=== PATIENT | male | born 1945 | race Caucasian/White ===

== ENCOUNTER → 2016-11-22 | Outpatient (CLI) | payer OTHER, BC ==
[~2016-11-22] MED LIST: ACETAMINOPHEN; ADULT LOW DOSE81 MG PO; ALPRAZOLAM 0.50.5 M1 PO; AMBIEN 10 MG TA10 MG PO; AMLODIPINE BESY10 MG PO; CELLCEPT 250 M250 M1 PO; HYDROCHLOROTHIA25 M2; KEFLEX500 MG PO; LISINOPRIL40 MG PO; METOPROLOL 100100 M1 PO; NORCO 5-325 TA1 EACH PO; POTASSIUM20 PO; PREDNISOLONE 5 M5 M1 PO; PRILOSEC 20 MG20 MG PO; PROGRAF0.5 MG PO; PROTONIX40 M2 PO; ROSADAN45 G1; SIMVASTATIN40 MG PO; THERAPEUTIC-M1 EAC1 PO
--- NOTE | ~2016-11-22 | PFR/MVV ---
[facility] [place] [address] PULMONARY FUNCTION MVV/REPORT Name: FAIZA GODWIN Room #: KIM Estrada#: [id number] Admission: 11/22/16 Attend Phys: Jose Whyte DO Discharge: Date of : 49 Report #: [id number] THIS REPORT FOR: //name// COPIES FOR: AGE: 71 SEX/RACE: M/C >> SPIROMETRY: (BTPS) Height: 66.0 in cm Weight: 205 lbs kg Exam Date: 11/22/16 PRE-RX POST-RX PRED BEST %PRED BEST %PRED %CHG FVC LITERS . 3.34 . 3.28 . 98 . 3.05 . 91 . -7 FEV1 LITERS . 2.64 . 2.42 . 92 . 2.42 . 92 . 0 FEV1/FVC % . 79 . 74 . 93 . 79 . 100 . 7 DSG26-53% L/Sec . 2.71 . 1.75 . 65 . 2.18 . 81 . 25 PEF L/SEC . 7.35 . 7.48 . 102 . 7.30 . 99 . -2 FEF50/FIF50 UNITLESS . <1.00 . 0.44 . . 0.55 . . 24 MVV L/Min . 115 . 75 . 65 f 1/Min . . 115 . >> LUNG VOLUMES: (BTPS) PRE-RX POST-RX PRED AVG %PRED AVG %PRED %CHG VC Liters . 3.34 . 3.83 . 115 . . . TLC Liters . 5.57 . 5.97 . 107 . . . RV Liters . 2.25 . 2.14 . 95 . . . RV/TLC % . 40 . 36 . 89 . . . FRC PL Liters . 2.86 . 3.05 . 107 . . . FRC N2 Liters . 2.86 . . . . . ERV Liters . . 0.90 . . . . IC Liters . . 2.92 . . . . >> DIFFUSION: DLCO ml/Min/mmHg . 21.8 . 10.7 . 49 . . . DL [place] ml/Min/mmHg . 21.8 . 10.7 . 49 . . . DLCO/VA ml/Min/mmHg . 3.57 . 5.11 . 143 . . . VA Liters . . 2.10 . . . . [facility] [address] [place] [address] PULMONARY FUNCTION MVV/REPORT Name: TATOFAIZA Mamie [id number] Admission: 11/22/16 Attend Phys: Jose Whyte DO Discharge: Date of : 49 Report #: [id number] COMMENTS: COMMENTS: >> RESISTANCE: PRE-RX PRED AVG %PRED Raw Total cmH20/L/Sec . . 3.27 . Raw Insp cmH20/L/Sec . . 3.66 . Raw Exp cmH20/L/Sec . . 4.56 . Raw cmH20/L/Sec . 1.68 . 1.36 . 81 Gaw L/Sec/cmH20 . 0.686 . 0.736 . 107 sRaw cmH20 Sec . 4.79 . 4.45 . 93 sGaw l/cmH20 Sec . 0.209 . 0.225 . 108 Vtq Liters . . 3.27 . # = OUTSIDE 95% CONFIDENCE INTERVAL CALIBRATION: PRED: 3.00 ACTUAL: EXP 3.01 INSP 3.02 [facility]OL10-06 [facility] N-1804-4 >> INTERPRETATION/IMPRESSION: CC: Haider Whyte PULMONARY FUNCTION STUDY Spirometry within normal limits. No significant air trapping. There is a moderately severe diffusion defect, which normalizes with alveolar volume. Clinical correlation suggested. <ELECTRONICALLY SIGNED> By: Yony Warner MD 11/23/16 1812 Yony Warner MD /nt
== END ==
LOC: PUL 10:11
DX: R06.02 Shortness of breath (principal); Z87.891 Personal history of nicotine dependence; Z80.1 Family history of malignant neoplasm of trachea, bronchus and lung